=== PATIENT | male | born 1975 | race Caucasian/White ===

== ENCOUNTER 2022-04-11 07:53 | Day surgery (SDC) | payer BC, OTHER ==
[~2022-04-11 07:53] MED LIST: Lactated Ringers 1,000 ML IV SCH; Lidocaine 1%/Sod Bicarbonate in NS 8.4% 1 ML Syringe IDERM PRN; Sodium Chloride 0.9% 10 ML Syringe FLUSH PRN; Sodium Chloride 0.9% 10 ML Syringe FLUSH SCH
[2022-04-11] MEDS ORDERED: fentaNYL 100 MCG/2 ML SDV ONE (09:16)
[2022-04-11] MEDS ORDERED: Propofol 200 MG/20 ML SDV ONE ×3 (09:16→10:40)
[2022-04-11] MEDS ORDERED: Lidocaine 1% 6 ML ONE (09:21)
[2022-04-11] MEDS ORDERED: Lactated Ringers 1,000 ML ONE (10:13)
== END 2022-04-11 11:30 | disposition home or self-care (01) ==
LOC: JD.SDS 07:53
PROVIDERS: ATTEND Surgery
DX: Z12.11 Encounter for screening for malignant neoplasm of colon (principal); K62.1 Rectal polyp; K44.9 Diaphragmatic hernia without obstruction or gangrene; K57.30 Diverticulosis of large intestine without perforation or abscess without bleeding; K29.70 Gastritis, unspecified, without bleeding; K22.89 Other specified disease of esophagus; K31.89 Other diseases of stomach and duodenum; K64.9 Unspecified hemorrhoids; E78.2 Mixed hyperlipidemia; G47.33 Obstructive sleep apnea (adult) (pediatric); E66.9 Obesity, unspecified; E03.9 Hypothyroidism, unspecified; I10 Essential (primary) hypertension; G43.909 Migraine, unspecified, not intractable, without status migrainosus; Z98.890 Other specified postprocedural states; Z79.899 Other long term (current) drug therapy; Z88.0 Allergy status to penicillin; Z88.1 Allergy status to other antibiotic agents; Z68.41 Body mass index [BMI] 40.0-44.9, adult
CPT/HCPCS: 43239; 45378; J2704; J3010; J7120; 00813